=== PATIENT | male | born 1975 ===

== ENCOUNTER 2024-12-30 11:39 | Outpatient (CLI) | payer OTHER | END 2024-12-30 11:40 | disposition home or self-care (01) | LOC: MRI 11:39 | PROVIDERS: ATTEND Orthopaedic Surgery | DX: M75.112 Incomplete rotator cuff tear or rupture of left shoulder, not specified as traumatic (principal); S43.492A Other sprain of left shoulder joint, initial encounter; M67.80 Other specified disorders of synovium and tendon, unspecified site ==